=== PATIENT | female | born 1950 | race Two or more races ===

== ENCOUNTER 2020-02-27 22:48 | Inpatient (IN) | payer MEDICARE, OTHER ==
[~2020-02-27] VITALS: Ht 160 cm; Wt 71.4 kg
--- NOTE | 2020-02-27 23:32 | NUR ---
82%RA ON 2L O2 91%
--- NOTE | 2020-02-27 23:41 | NUR ---
PT RESTING ON GURNEY, PT REPSIRATIONS ARE SLIGHTLY LABORED, ON 2.5L NC PT SAT AT 93%. PT STATES SHE WENT ON A WALK THIS MORNING AND AFTER BEGAN TO FEEL SHORT OF BREATH, COUGHING AND DIZZINESS. NO EDEMA, SKIN IS HOT TO TOUCH. SON AT BS. NAD, CALL LIGHT ON LAP. PT PLACED ON SPO2/BP MONITORING. JINA BOURGEOIS AT BS FOR EVAL AND POC. WCTM.
[2020-02-27] MEDS ORDERED: CARV-39 PO (23:45)
[2020-02-27] MEDS ORDERED: ESCI10TA PO (23:45)
[2020-02-27] MEDS ORDERED: LOSA100T14 PO (23:45)
[2020-02-27] MEDS ORDERED: ALBUTEROL SULFATE 2.5 MG/3 ML ONE (23:52)
[2020-02-28] MEDS ORDERED: ALBUTEROL SULFATE 2.5 MG/3 ML NPPB ONE
[2020-02-28 00:02] LABS: BASOPHILS # (AUTO) 0.03 x10^3/uL (0-0.1); BASOPHILS % (AUTO) 0 % (0-1); EOSINOPHILS # (AUTO) 0.21 x10^3/uL (0-0.4); EOSINOPHILS % (AUTO) 2 % (1-7); LYMPHOCYTES # (AUTO) 2.04 x10^3/uL (1-3.4); LYMPHOCYTES % (AUTO) 20 % (22-44); MD NO; MEAN CORPUSCULAR HEMOGLOBIN 29.7 pg (27.0-34.8); MEAN CORPUSCULAR HGB CONC 32.8 g/dL (32.4-35.8); MEAN CORPUSCULAR VOLUME 90.3 fL (80-100); MEAN PLATELET VOLUME 8.3 fL (7.4-10.4); MONOCYTES # (AUTO) 0.49 x10^3/uL (0.2-0.8); MONOCYTES % (AUTO) 5 % (2-9); NEUTROPHILS % (AUTO) 73 % (42-75); PLATELET COUNT 295 x10^3/uL (130-400); RED BLOOD COUNT 4.55 x10^6/uL (3.82-5.3); RED CELL DISTRIBUTION WIDTH 12.9 % (9.6-15.2)
--- NOTE | 2020-02-28 00:03 | NUR ---
PT MEDICATED PER SEP. VERA, SON AT BS, WCTM.
[2020-02-28 00:15] LABS: ALANINE AMINOTRANSFERASE 19 U/L (12-78); ALBUMIN 3.6 g/dL (3.4-5.0); ANION GAP 10 mmol/L (5-15); CALCIUM 8.2 mg/dL (8.5-10.1); CHLORIDE 94 mmol/L (98-107); CREATININE 0.73 mg/dL (0.55-1.02)
[2020-02-28 00:19] LABS: ALKALINE PHOSPHATASE 122 U/L (45-117); BILIRUBIN,TOTAL 0.4 mg/dL (0.2-1.0); TOTAL PROTEIN 7.5 g/dL (6.4-8.2); TROPONIN I 0.078 ng/mL (0.000-0.045)
[2020-02-28] MEDS ORDERED: ASPIRIN 81 MG TABLET CHEW PO ONE (01:00)
--- NOTE | 2020-02-28 01:00 | NUR ---
LATE ENTRY: RN AT BS, PT APPEARS TO BE HAVING INCREASED DIFFICULTY BREATHING. PLACED IN TRIPOD POSITION, ERP NOTIFIED, WCTM.
[2020-02-28] MEDS ORDERED: LORazepam 2 MG/ML, 1ML ONE (01:15)
[2020-02-28] MEDS ORDERED: LORazepam 2 MG/ML, 1ML IVPush ONE (01:30)
[2020-02-28] MEDS ORDERED: FUROSEMIDE 40 MG/4 ML IV ONE (01:30)
--- NOTE | 2020-02-28 01:30 | NUR ---
LATE ENTRY: RT AT BS, PT MEDICATED PER SEP, APPEARS TO BE MORE COMFORTABLE AND BREATHING BETTER AT THIS TIME ON OPTIFLOW. PT SWABBED FOR COVID, SWAB WALKED TO LAB. VSS. WCCODY.
[2020-02-28] MEDS ORDERED: FUROSEMIDE 40 MG/4 ML ONE ×2 (01:34→01:44)
[2020-02-28] MEDS ORDERED: ASPIRIN 81 MG TABLET CHEW ONE (01:35)
--- NOTE | 2020-02-28 02:06 | NUR ---
PHONE REPORT TO SULLY MARTIN, PT CARE TO BE TRASNFERRED UPON ARRIVAL TO THE FLOOR, WCCODY.
[2020-02-28] MEDS ORDERED: BISACODYL 10 MG SUPP PR PRN (03:30)
[2020-02-28] MEDS ORDERED: ENALAPRILAT 1.25 MG/ML, 2ML IVPush PRN (03:30)
[2020-02-28] MEDS ORDERED: hydrALAzine 20 MG/ML, 1ML IVPush PRN (03:30)
[2020-02-28] MEDS ORDERED: DOCUSATE 100 MG CAPSULE PO PRN (03:30)
[2020-02-28] MEDS ORDERED: POLYETHYLENE GLYCOL 17 GM PACKET PO PRN (03:30)
[2020-02-28 03:50] VITALS: BP 114/78
[2020-02-28 04:12] LABS: BASOPHILS # (AUTO) 0.02 x10^3/uL (0-0.1); BASOPHILS % (AUTO) 0 % (0-1); EOSINOPHILS # (AUTO) 0.03 x10^3/uL (0-0.4); EOSINOPHILS % (AUTO) 0 % (1-7); LYMPHOCYTES # (AUTO) 1.21 x10^3/uL (1-3.4); LYMPHOCYTES % (AUTO) 12 % (22-44); MD NO; MEAN CORPUSCULAR HEMOGLOBIN 29.8 pg (27.0-34.8); MEAN CORPUSCULAR HGB CONC 33.1 g/dL (32.4-35.8); MEAN PLATELET VOLUME 8.3 fL (7.4-10.4); MONOCYTES # (AUTO) 0.37 x10^3/uL (0.2-0.8); MONOCYTES % (AUTO) 4 % (2-9); NEUTROPHILS # (AUTO) 8.38 x10^3/uL (1.8-6.8); NEUTROPHILS % (AUTO) 84 % (42-75); PLATELET COUNT 293 x10^3/uL (130-400); RED BLOOD COUNT 4.79 x10^6/uL (3.82-5.3); RED CELL DISTRIBUTION WIDTH 12.7 % (9.6-15.2)
[2020-02-28 04:23] LABS: ALANINE AMINOTRANSFERASE 20 U/L (12-78); ALBUMIN 3.9 g/dL (3.4-5.0); ANION GAP 9 mmol/L (5-15); CALCIUM 8.2 mg/dL (8.5-10.1); CHLORIDE 93 mmol/L (98-107); CHOLESTEROL, TOTAL 171 mg/dL (140-239); CREATININE 0.79 mg/dL (0.55-1.02)
[2020-02-28 04:27] LABS: ALKALINE PHOSPHATASE 133 U/L (45-117); BILIRUBIN,TOTAL 0.5 mg/dL (0.2-1.0); CHOL/HDL RATIO 3.1; HDL CHOL % 33 % (28-40); HDL CHOLESTEROL (DIRECT) 56 mg/dL (40-60); LDL CHOLESTEROL,CALCULATED 82 mg/dL (54-169); LDL/HDL RATIO 1.5 (0.5-3.0); TOTAL PROTEIN 7.9 g/dL (6.4-8.2); TRIGLYCERIDES 166 mg/dL (50-200); TROPONIN I 0.808 ng/mL (0.000-0.045); VLDL CHOLESTEROL 33 mg/dL (0-25)
[2020-02-28] MEDS ORDERED: HEPARIN 5,000 UNITS/ML, 1ML IV PRN (04:30)
[2020-02-28] MEDS ORDERED: HEPARIN 5,000 UNITS/ML, 1ML IV ONE (04:30)
[2020-02-28] MEDS: HEPARIN 25,000 UNITS/250ML PMX 250 ML IV PRN (04:55)
[2020-02-28] MEDS: ASPIRIN 81 MG TABLET EC PO SCH (05:09)
[2020-02-28 06:31] VITALS: BP 138/87
[2020-02-28] MEDS: SENNA/DOCUSATE TABLET PO SCH (07:13)
[2020-02-28] MEDS: ESCITALOPRAM 10MG TABLET PO SCH (07:28)
[2020-02-28] MEDS: FUROSEMIDE 40 MG/4 ML IV SCH ×2 (07:29→16:19)
[2020-02-28] MEDS ORDERED: DEXAMETHASONE 4 MG TABLET PO SCH (07:30)
[2020-02-28 12:06] VITALS: BP 107/71
[2020-02-28 12:40] LABS: TROPONIN I 0.788 ng/mL (0.000-0.045)
[2020-02-28 17:48] LABS: CHLORIDE,URINE RANDOM 71 mmol/L; POTASSIUM,URINE RANDOM 11 mmol/L; SODIUM,URINE RANDOM 67 mmol/L
[2020-02-28] MEDS: ACETAMINOPHEN 325 MG TABLET PO PRN (18:43)
[2020-02-28 18:48] VITALS: BP 112/73
[2020-02-28 19:46] LABS: OSMOLALITY,URINE 192 mOsm/kg (500-850)
[2020-02-28] MEDS: ATORVASTATIN 80 MG TABLET PO SCH (20:06)
[2020-02-28] MEDS ORDERED: CARVEDILOL 25 MG TABLET PO SCH (21:00)
[2020-02-28] MEDS ORDERED: LOSARTAN 100 MG TAB PO SCH (21:00)
[2020-02-28 21:13] LABS: TROPONIN I 0.675 ng/mL (0.000-0.045)
[2020-02-29 00:55] VITALS: BP 105/62
[2020-02-29 05:17] LABS: BASOPHILS # (AUTO) 0.04 x10^3/uL (0-0.1); BASOPHILS % (AUTO) 0 % (0-1); EOSINOPHILS # (AUTO) 0.01 x10^3/uL (0-0.4); EOSINOPHILS % (AUTO) 0 % (1-7); LYMPHOCYTES # (AUTO) 1.44 x10^3/uL (1-3.4); LYMPHOCYTES % (AUTO) 11 % (22-44); MD NO; MEAN CORPUSCULAR HGB CONC 33.1 g/dL (32.4-35.8); MEAN CORPUSCULAR VOLUME 90.7 fL (80-100); MEAN PLATELET VOLUME 8.8 fL (7.4-10.4); MONOCYTES # (AUTO) 0.92 x10^3/uL (0.2-0.8); MONOCYTES % (AUTO) 7 % (2-9); NEUTROPHILS # (AUTO) 11.03 x10^3/uL (1.8-6.8); NEUTROPHILS % (AUTO) 82 % (42-75); PLATELET COUNT 263 x10^3/uL (130-400); RED BLOOD COUNT 4.47 x10^6/uL (3.82-5.3); RED CELL DISTRIBUTION WIDTH 12.7 % (9.6-15.2)
[2020-02-29 05:20] LABS: ANION GAP 13 mmol/L (5-15); CALCIUM 8.3 mg/dL (8.5-10.1); CHLORIDE 90 mmol/L (98-107)
[2020-02-29 05:28] LABS: ALANINE AMINOTRANSFERASE 17 U/L (12-78); ALBUMIN 3.4 g/dL (3.4-5.0); ALKALINE PHOSPHATASE 104 U/L (45-117); BILIRUBIN,TOTAL 0.5 mg/dL (0.2-1.0); CREATININE 0.84 mg/dL (0.55-1.02); TOTAL PROTEIN 7.2 g/dL (6.4-8.2); TROPONIN I 0.434 ng/mL (0.000-0.045)
[2020-02-29] MEDS: ASPIRIN 81 MG TABLET EC PO SCH (05:37)
[2020-02-29] MEDS: ACETAMINOPHEN 325 MG TABLET PO PRN ×3 (05:37→20:05)
[2020-02-29] MEDS: HEPARIN 25,000 UNITS/250ML PMX 250 ML IV PRN (05:54)
[2020-02-29 07:25] VITALS: BP 113/74
[2020-02-29] MEDS: SENNA/DOCUSATE TABLET PO SCH (09:00)
[2020-02-29] MEDS: FUROSEMIDE 40 MG/4 ML IV SCH (09:26)
[2020-02-29] MEDS: ESCITALOPRAM 10MG TABLET PO SCH (09:26)
[2020-02-29] MEDS: POTASSIUM CHLORIDE 20 MEQ TAB.ER.PRT PO SCH ×2 (12:02→16:47)
[2020-02-29 12:08] VITALS: BP 120/75
[2020-02-29] MEDS: ENOXAPARIN 40 MG/0.4 ML SQ SCH (16:47)
[2020-02-29] MEDS ORDERED: POTASSIUM CHLORIDE 20 MEQ TAB.ER.PRT PO SCH (17:00)
[2020-02-29 19:51] VITALS: BP 137/83
[2020-02-29] MEDS: CARVEDILOL 12.5 MG TABLET PO SCH (20:05)
[2020-02-29] MEDS: ATORVASTATIN 80 MG TABLET PO SCH (20:05)
[2020-02-29] MEDS ORDERED: LOSARTAN 50MG TABLET PO SCH (21:00)
[2020-03-01 03:50] VITALS: BP 104/67
[2020-03-01 04:51] LABS: BASOPHILS # (AUTO) 0.05 x10^3/uL (0-0.1); BASOPHILS % (AUTO) 1 % (0-1); EOSINOPHILS # (AUTO) 0.05 x10^3/uL (0-0.4); EOSINOPHILS % (AUTO) 1 % (1-7); LYMPHOCYTES # (AUTO) 2.31 x10^3/uL (1-3.4); LYMPHOCYTES % (AUTO) 26 % (22-44); MD NO; MEAN CORPUSCULAR HEMOGLOBIN 29.6 pg (27.0-34.8); MEAN CORPUSCULAR HGB CONC 32.7 g/dL (32.4-35.8); MEAN CORPUSCULAR VOLUME 90.5 fL (80-100); MEAN PLATELET VOLUME 8.8 fL (7.4-10.4); MONOCYTES # (AUTO) 0.73 x10^3/uL (0.2-0.8); MONOCYTES % (AUTO) 8 % (2-9); NEUTROPHILS # (AUTO) 5.75 x10^3/uL (1.8-6.8); NEUTROPHILS % (AUTO) 65 % (42-75); PLATELET COUNT 237 x10^3/uL (130-400); RED CELL DISTRIBUTION WIDTH 12.7 % (9.6-15.2)
[2020-03-01 05:01] LABS: ALBUMIN 3.6 g/dL (3.4-5.0); ANION GAP 7 mmol/L (5-15); CALCIUM 8.3 mg/dL (8.5-10.1); CHLORIDE 98 mmol/L (98-107)
[2020-03-01 05:06] LABS: ALANINE AMINOTRANSFERASE 19 U/L (12-78); ALKALINE PHOSPHATASE 101 U/L (45-117); BILIRUBIN,TOTAL 0.4 mg/dL (0.2-1.0); CREATININE 0.77 mg/dL (0.55-1.02); TOTAL PROTEIN 7.2 g/dL (6.4-8.2); TROPONIN I 0.222 ng/mL (0.000-0.045)
[2020-03-01] MEDS: ASPIRIN 81 MG TABLET EC PO SCH (06:36)
[2020-03-01 07:19] VITALS: BP 124/71
[2020-03-01] MEDS ORDERED: REGADENOSON 0.4 MG/5 ML SYRINGE ONE (08:38)
[2020-03-01] MEDS: ESCITALOPRAM 10MG TABLET PO SCH (08:49)
[2020-03-01] MEDS: POTASSIUM CHLORIDE 20 MEQ TAB.ER.PRT PO SCH ×2 (08:49→18:01)
[2020-03-01] MEDS: CARVEDILOL 12.5 MG TABLET PO SCH (08:49)
[2020-03-01] MEDS: SENNA/DOCUSATE TABLET PO SCH (08:56)
[2020-03-01] MEDS ORDERED: FUROSEMIDE 40 MG TABLET PO SCH (09:00)
[2020-03-01 12:02] VITALS: BP 115/75
[2020-03-01 13:52] VITALS: BP 123/78
[2020-03-01] MEDS: ENOXAPARIN 40 MG/0.4 ML SQ SCH (15:00)
[2020-03-01] MEDS ORDERED: ATOR-2 PO (15:19)
[2020-03-01] MEDS ORDERED: ASPI81TA45 PO (15:19)
== END 2020-03-01 19:06 | disposition home health service (06) | DRG 280 ==
LOC: ED 23:36 → EDIP 02-28 00:41 → 4EST 02-28 03:35 → 5SO 02-29 16:58 → 4EST 02-29 17:00 → 5SO 02-29 17:09
PROVIDERS: ADMIT Family Medicine; ATTEND Internal Medicine
DX: I21.4 Non-ST elevation (NSTEMI) myocardial infarction (principal); J81.0 Acute pulmonary edema; J96.01 Acute respiratory failure with hypoxia; E87.1 Hypo-osmolality and hyponatremia; J81.1 Chronic pulmonary edema; F32.9 Major depressive disorder, single episode, unspecified; E87.6 Hypokalemia; I10 Essential (primary) hypertension; Z20.828 Contact with and (suspected) exposure to other viral communicable diseases; Z79.899 Other long term (current) drug therapy; Z79.82 Long term (current) use of aspirin
CPT/HCPCS: 36415; 71045; 78452; 80053; 80061; 82436; 83036; 83735; 83880; 83930; 83935; 84133; 84300; 84443; 84484; 85025; 85520; 87635; 93005; 93017; 93306; 99291; G0378; J1644; J1650; J1940; J2785; J7613; A9502; J2060; J7512